=== PATIENT | male | born 1975 | race Caucasian/White ===

== ENCOUNTER 2018-12-31 13:55 | Inpatient (IN) | payer OTHER ==
[2018-12-31 14:29] VITALS: BMI 21.9
--- NOTE | 2018-12-31 15:26 | HP ---
CIWA Score Nausea/Vomitin Muscle Tremors: 2 Anxiety: 2 Agitation: 1-Slight > Activity Paroxysmal Sweats: 1-Minimal Palms Moist Orientation: 0-Oriented Tacttile Disturbances: 1-Very Mild Itch/Numbness Auditory Disturbances: 1-Very Mild Visual Disturbances: 0-None Headache: 3-Moderate CIWA-Ar Total Score: 13 - Admission Criteria OASAS Guidelines: Admission for Medically Managed Detox: Requires at least one of the followin. CIWA greater than 12 2. Seizures within the past 24 hours 3. Delirium tremens within the past 24 hours 4. Hallucinations within the past 24 hours 5. Acute intervention needed for co occurring medical disorder 6. Acute intervention needed for co occurring psychiatric disorder 7. Severe withdrawal that cannot be handled at a lower level of care (continued vomiting, continued diarrhea, abnormal vital signs) requiring intravenous medication and/or fluids 8. Admitting History and Physical - Smoking History Smoking history: Current every day smoker Have you smoked in the past 12 months: Yes Aproximately how many cigarettes per day: 15 - Alcohol/Substance Use Hx Alcohol Use: Yes Admission ROS [facility] Chief Complaint: Teo Clark is a 43 year old male presenting for alcohol, heroin, and cocaine abuse. Allergies/Adverse Reactions: Allergies Allergy/AdvReac Type Severity Reaction Status Date / Time No Known Allergies Allergy Verified 12/31/18 14:21 History of Present Illness: Teo Clark is a 43 year old male presenting for alcohol, heroin, and cocaine abuse. Alcohol: 2 pints and 2 six-packs of 24oz beers per day. Drinks every day. Last drink was shortly before arriving at this facility. Denies seizures. Has had blackouts in the past, most recently several months ago. Denies falls and head hits. Uncertain of longest period of sobriety. Heroin: 1 bundle daily. Daily user. Endorses IVDU. Uses needles only once, does not reuse, denies sharing needles. Has had a history of abscess. Has had 2 overdoses. Has a Narcan kit and knows how to use. Currently on methadone program , 100mg (highest dose), through [facility], goes daily. Cocaine: 1 bundle daily. Daily user. Endorses IVDU. Has been to detox and rehab in the past. Has been to [facility] 3 months ago. Plans after detox: does not want to go to rehab, wants to go back home. Medical History: Hep C (untreated) Surgical History: appendectomy, L ankle fracture repair, tonsillectomy Psychiatric History: depression, anxiety, bipolar Smokinppd, >20 years Social: living with friends. Family is abroad in [place]. Does not have kids. Will be admitted for Alcohol detox with [facility] protocol. Patient's methadone program is currently closed and will need methadone dose verification in the morning. Exam Limitations: No Limitations - Ebola screening Have you traveled outside of the country in the last 21 days: No Have you had contact with anyone from an Ebola affected area: No Do you have a fever: No - Review of Systems Constitutional: Chills, Loss of Appetite EENT: reports: No Symptoms Reported Respiratory: reports: No Symptoms reported Cardiac: reports: No Symptoms Reported GI: reports: Diarrhea, Nausea : reports: No Symptoms Reported Musculoskeletal: reports: Back Pain, Other (leg pain and occasional swelling) Integumentary: reports: No Symptoms Reported Neuro: reports: Headache, Tingling (in lower extremities) Endocrine: reports: Intolerance to Cold Hematology: reports: No Symptoms Reported Psychiatric: reports: Orientated x3, Anxious Patient History - Patient Medical History Hx Anemia: No Hx Asthma: No Hx Chronic Obstructive Pulmonary Disease (COPD): No Hx Cancer: No Hx Cardiac Disorders: No Hx Congestive Heart Failure: No Hx Hypertension: No Hx Hypercholesterolemia: No Hx Pacemaker: No HX Cerebrovascular Accident: No Hx Seizures: No Hx Dementia: No Hx Diabetes: No Hx Gastrointestinal Disorders: No Hx Liver Disease: No Hx Genitourinary Disorders: No Hx Sexually Transmitted Disorders: No Hx Renal Disease (ESRD): No Hx Thyroid Disease: No Hx Human Immunodeficiency Virus (HIV): No (09/29 last negative) Hx Hepatitis C: Yes Hx Depression: Yes Hx Suicide Attempt: No Hx Bipolar Disorder: Yes Hx Schizophrenia: No - Patient Surgical History Past Surgical History: Yes Hx Appendectomy: Yes Hx Orthopedic Surgery: Yes (s/p surgery of left ankle at [place] 09/18/14) Other Surgical History: tonsillectomy Anesthesia Reaction: No - PPD History PPD to be Administered?: Yes - Smoking Cessation Smoking history: Current every day smoker Have you smoked in the past 12 months: Yes Aproximately how many cigarettes per day: 15 Cigars Per Day: 0 Hx Chewing Tobacco Use: No Initiated information on smoking cessation: Yes 'Breaking Loose' booklet given: 12/31/18 - Substance & Tx. History Hx Alcohol Use: Yes Hx Substance Use: Yes Substance Use Type: Alcohol, Cocaine, Heroin - Substances abused Heroin Substance route: Injection Frequency: Daily Amount used: 10BAGS Age of first use: 18 Date of last use: 12/31/18 Cocaine Substance route: Injection Frequency: Daily Amount used: 10BAGS Age of first use: 18 Date of last use: 12/31/18 Alcohol Substance route: Oral Frequency: Daily Amount used: 2BTL- 24OZ BEER/ 2PTS VODKA Age of first use: 15 Date of last use: 12/31/18 Admission Physical Exam [facility] - Vital Signs Vital Signs: Vital Signs - 24 hr 12/31/18 14:16 Temperature 97.3 F L Pulse Rate 63 Respiratory 18 Rate Blood Pressure 122/71 - Physical General Appearance: Yes: Disheveled, Mild Distress HEENTM: Yes: EOMI, Normocephalic, Normal Voice, DAHLIA, Pharynx Normal Respiratory: Yes: Chest Non-Tender, Lungs Clear, Normal Breath Sounds, No Respiratory Distress, No Accessory Muscle Use Neck: Yes: No masses,lesions,Nodules, Trachea in good position Breast: Yes: Breast Exam Deferred Cardiology: Yes: Regular Rhythm, Regular Rate, S1, S2 Abdominal: Yes: Normal Bowel Sounds, Non Tender, Flat, Soft Genitourinary: Yes: Within Normal Limits Back: Yes: Normal Inspection Musculoskeletal: Yes: full range of Motion Extremities: Yes: Normal Capillary Refill, Normal Range of Motion, Non-Tender, Other (venous stasis dermatitis lesions noted on bilateral lower legs) Neurological: Yes: child study team director II-XII NML intact, Fully Oriented, Alert, Motor Strength 5/5 Integumentary: Yes: Normal Color, Dry, Warm, Track Srinivasan (noted on arms, neck) - Diagnostic (1) Alcohol dependence Current Visit: No Status: Acute (2) Anxiety and depression Current Visit: No Status: Acute (3) Bipolar disorder Current Visit: No Status: Acute (4) Hepatitis C Current Visit: No Status: Acute (5) Heroin dependence Current Visit: No Status: Acute (6) Nicotine dependence Current Visit: No Status: Acute (7) Weight loss Current Visit: No Status: Acute Breathalyzer - Breathalyzer Breathalyzer: 0 Urine Drug Screen - Test Device Lot number: [id number] Expiration date: 08/15/20 - Control Is test valid?: Yes - Results Drug screen NEGATIVE: No Urine drug screen results: THC-Marijuana, PASTOR-Cocaine, FEN-Fentanyl, MOP-Opiates , OXY-Oxycodone, MTD-Methadone Inpatient Rehab Admission - Rehab Decision to Admit Inpatient rehab admission?: No
[2018-12-31] MEDS ORDERED: MAGNESIUM HYDROX 2400MG/30ML ORAL SUSPENSION 30 ML CUP PO PRN (16:02)
[2018-12-31] MEDS ORDERED: MENTHOL/PHENOL 1 EACH UD MM PRN (16:02)
[2018-12-31] MEDS ORDERED: MAGNESIUM CITRATE 300 ML BOTTLE PO PRN (16:02)
[2018-12-31] MEDS ORDERED: BISMUTH SUBSALICYLATE 524 MG/30 ML UD PO PRN (16:02)
[2018-12-31] MEDS ORDERED: ACETAMINOPHEN 325 MG TABLET (FP) PO PRN ×2 (16:02)
[2018-12-31] MEDS ORDERED: IBUPROFEN 400 MG TABLET (FP) PO PRN (16:02)
--- NOTE | 2018-12-31 16:11 | PN ---
Teaching Attending Note Name of Resident: Axel Monteiro ATTENDING PHYSICIAN STATEMENT I saw and evaluated the patient. I reviewed the resident's note and discussed the case with the resident. I agree with the resident's findings and plan as documented. SUBJECTIVE: I agree with subjective findings of resident OBJECTIVE: I agree with objective findings of resident ASSESSMENT AND PLAN: Agree with plan of admission to detox. Dr. Parkinson
[2018-12-31] MEDS: chlordiazePOXIDE HCL 25 MG CAPSULE PO SCH ×2 (17:42→22:11)
[2018-12-31] MEDS: MELATONIN 5 MG TABLETS PO PRN (22:11)
[2018-12-31] MEDS: THIAMINE HCL 100 MG TABLET (FP) PO SCH (22:25)
[2018-12-31] MEDS: hydrOXYzine PAMOATE 25 MG CAPSULE (FP) PO PRN (23:38)
[2019-01-01] MEDS: chlordiazePOXIDE HCL 25 MG CAPSULE PO SCH ×4 (06:01→22:10)
--- NOTE | 2019-01-01 09:04 | PN ---
S CIWA - CIWA Score Nausea/Vomitin-Mild Nausea/No Vomiting Muscle Tremors: 2 Anxiety: 3 Agitation: 2 Paroxysmal Sweats: 2 Orientation: 0-Oriented Tacttile Disturbances: 0-None Auditory Disturbances: 1-Very Mild Visual Disturbances: 0-None Headache: 1-Very Mild CIWA-Ar Total Score: 12 S Progress Note (SOAP) Subjective: doing well with librium detox regimen resting on bed waiting for methadone 100 mg po requests to take methadone at 10 am daily discoloration both skin of lower legs due to poor circulation with chronic neurogenic pain eucerin cream + gabapentin 300 mg po bid Objective: 01/01/19 10:35 Vital Signs Temperature 96.7 F L 01/01/19 09:08 Pulse Rate 57 L 01/01/19 09:08 Respiratory Rate 16 01/01/19 09:08 Blood Pressure 108/63 01/01/19 09:08 O2 Sat by Pulse Oximetry (%) Laboratory Last Values WBC 4.6 K/mm3 (4.0-10.0) 01/01/19 07:50 RBC 4.18 M/mm3 (4.00-5.60) 01/01/19 07:50 Hgb 12.3 GM/dL (11.7-16.9) 01/01/19 07:50 Hct 36.2 % (35.4-49) 01/01/19 07:50 MCV 86.6 fl (80-96) 01/01/19 07:50 MCH 29.4 pg (25.7-33.7) 01/01/19 07:50 MCHC 33.9 g/dl (32.0-35.9) 01/01/19 07:50 RDW 13.7 % (11.9-15.9) 01/01/19 07:50 Plt Count 192 K/MM3 (134-434) 01/01/19 07:50 MPV 9.1 fl (7.5-11.1) 01/01/19 07:50 lab noted Assessment: 01/01/19 10:36 alcohol withdrawal sx Plan: continue librium detox regimen
[2019-01-01] MEDS ORDERED: METHADONE HCL 10 MG TABLET PO SCH (10:00)
[2019-01-01] MEDS ORDERED: METHADONE HCL 40 MG DISPERSABLE TABLET ONE (10:02)
[2019-01-01] MEDS ORDERED: METHADONE HCL 10 MG TABLET ONE (10:02)
[2019-01-01] MEDS: METHADONE 80 MG, METHADONE 20 MG PO SCH (10:17)
[2019-01-01 10:18] LABS: HEMATOCRIT 36.2 % (35.4-49); HEMOGLOBIN 12.3 GM/dL (11.7-16.9); MCH 29.4 pg (25.7-33.7); MCHC 33.9 g/dl (32.0-35.9); MEAN CELL VOLUME 86.6 fl (80-96); MEAN PLT VOLUME 9.1 fl (7.5-11.1); PLATELET COUNT 192 K/MM3 (134-434); RBC 4.18 M/mm3 (4.00-5.60); RDW 13.7 % (11.9-15.9); WHITE BLOOD COUNT 4.6 K/mm3 (4.0-10.0)
[2019-01-01] MEDS: PRENATAL VITAMINS W/ FOLIC ACID TABLET (FP) PO SCH (10:18)
[2019-01-01] MEDS: NICOTINE 21 MG/24 HOURS TOPICAL PATCH TD SCH (10:20)
[2019-01-01 10:51] LABS: ALBUMIN 3.2 g/dl (3.4-5.0); BILIRUBIN,TOTAL 0.3 mg/dL (0.2-1); BLOOD UREA NITROGEN 15.3 mg/dL (7-18); CALCIUM 9.2 mg/dL (8.5-10.1); CREATININE 0.8 mg/dL (0.55-1.3); POTASSIUM 4.1 mmol/L (3.5-5.1); TOT PROT 6.5 g/dl (6.4-8.2)
[2019-01-01] MEDS: CLOTRIMAZOLE 1% CREAM 15 GM TUBE TP SCH ×2 (12:13→22:13)
[2019-01-01] MEDS: GABAPENTIN 300 MG CAPSULE (FP) PO SCH ×2 (12:13→22:10)
[2019-01-01] MEDS: MINERAL OIL/PETROLAT/WATER TOPICAL CREAM 113 GM JAR TP SCH ×2 (12:15→22:13)
[2019-01-01] MEDS ORDERED: COLLOIDAL OATMEAL 1 BAR EACH TP PRN (12:32)
[2019-01-01] MEDS: chlordiazePOXIDE HCL 25 MG CAPSULE PO PRN (12:51)
--- NOTE | 2019-01-01 13:57 | CONSULT ---
[facility] Psychiatric Consult - Data Date of interview: 01/01/19 Admission source: [facility] Identifying data: Patient is a 43 year old single [place] male, without children, unemployed, homeless, and is not receiving financial assistance. This is one of multiple admissions for patient. Patient admitted to for alcohol, cocaine and opiate dependence. Substance Abuse History: Smoking Cessation. Smoking history: Current every day smoker. Have you smoked in the past 12 months: Yes. Aproximately how many cigarettes per day: 15. Cigars Per Day: 0. Hx Chewing Tobacco Use: No. Initiated information on smoking cessation: Yes. 'Breaking Loose' booklet given : 12/31/18. - Substance & Tx. History. Hx Alcohol Use: Yes. Hx Substance Use : Yes. Substance Use Type: Alcohol, Cocaine, Heroin. - Substances abused. Heroin. Substance route: Injection. Frequency: Daily. Amount used: 10BAGS. Age of first use: 18. Date of last use: 12/31/18. Cocaine. Substance route : Injection. Frequency: Daily. Amount used: 10BAGS. Age of first use: 18. Date of last use: 12/31/18. Alcohol. Substance route: Oral. Frequency: Daily. Amount used: 2BTL- 24OZ BEER/ 2PTS VODKA. Age of first use: 15. Date of last use: 12/31/18 Medical History: s/p surgery of left ankle at [place] 09/18/14 Psychiatric History: Patient's reports history of two psychiatric hospitalizations most recently less then one year ago at [facility] due to worsening anxiety and depression. He reports being diagnosed with Bipolar disorder and anxiety disorder and claims to have been prescribed prozac + clonoidine + Trazodone. Patient is not currently under psychiatric care. Reports most recently recieving outpatient psychiatric care by Dr. Burrell at the [facility] five months ago and reports being tried on prozac 30mg, trazodone 100, Seroquel 200mg, Depakote 250mg, Xanax 2mg and Ambien. Patient denies history of suicide attempt. At present patient reports anxiety ( requesting klonopin) and difficulty sleeping. Physical/Sexual Abuse/Trauma History: denies. Mental Status Exam - Mental Status Exam Alert and Oriented to: Time, Place, Person Cognitive Function: Good Patient Appearance: Well Groomed Mood: Euthymic Affect: Mood Congruent Patient Behavior: Restless Speech Pattern: Clear Voice Loudness: Moderately Soft/Quiet Thought Process: Goal Oriented Thought Disorder: Not Present Hallucinations: Denies Suicidal Ideation: Denies Homicidal Ideation: Denies Insight/Judgement: Poor Sleep: Poorly Appetite: Fair Muscle strength/Tone: Normal Gait/Station: Normal Psychiatric Findings - Problem List ([place] 1, 2,3) (1) Methadone maintenance therapy patient Current Visit: Yes Status: Chronic (2) Alcohol dependence Current Visit: Yes Status: Acute (3) Cocaine dependence Current Visit: Yes Status: Acute (4) Substance-induced sleep disorder Current Visit: Yes Status: Acute (5) Substance induced mood disorder Current Visit: Yes Status: Acute (6) Mood disorder Current Visit: Yes Status: Chronic (7) Opiate dependence Current Visit: Yes Status: Acute - Initial Treatment Plan Initial Treatment Plan: Psychoeducation provided. Detoxification in progress. Will order Seroquel 50mg HS. Benefits and side effects discussed. Verbal consent given.
[2019-01-01] MEDS: QUEtiapine FUMARATE 50 MG TABLET PO SCH (22:10)
[2019-01-01] MEDS: THIAMINE HCL 100 MG TABLET (FP) PO SCH (22:11)
[2019-01-01] MEDS: hydrOXYzine PAMOATE 25 MG CAPSULE (FP) PO PRN (23:24)
[2019-01-01] MEDS: MAG HYDROX/AL HYDROX/SIMETH 30 ML UNIT-DOSE CUP PO PRN (23:24)
[2019-01-01] MEDS: MELATONIN 5 MG TABLETS PO PRN (23:24)
[2019-01-02] MEDS: chlordiazePOXIDE HCL 25 MG CAPSULE PO PRN ×2 (01:27→13:09)
[2019-01-02] MEDS: chlordiazePOXIDE HCL 25 MG CAPSULE PO SCH ×4 (05:59→22:25)
[2019-01-02] MEDS ORDERED: METHADONE HCL 40 MG DISPERSABLE TABLET ONE (09:26)
[2019-01-02] MEDS ORDERED: METHADONE HCL 10 MG TABLET ONE (09:26)
[2019-01-02] MEDS: PRENATAL VITAMINS W/ FOLIC ACID TABLET (FP) PO SCH (10:11)
[2019-01-02] MEDS: METHADONE 80 MG, METHADONE 20 MG PO SCH (10:11)
[2019-01-02] MEDS: MINERAL OIL/PETROLAT/WATER TOPICAL CREAM 113 GM JAR TP SCH ×2 (10:12→22:24)
[2019-01-02] MEDS: CLOTRIMAZOLE 1% CREAM 15 GM TUBE TP SCH ×2 (10:12→22:24)
[2019-01-02] MEDS: NICOTINE 21 MG/24 HOURS TOPICAL PATCH TD SCH (10:14)
[2019-01-02] MEDS: GABAPENTIN 300 MG CAPSULE (FP) PO SCH ×2 (10:15→22:24)
--- NOTE | 2019-01-02 11:49 | PN ---
[facility] CIWA - CIWA Score Nausea/Vomitin-No Nausea/No Vomiting Muscle Tremors: 1-None Visible, but [place] Anxiety: 3 Agitation: 2 Paroxysmal Sweats: 1-Minimal Palms Moist Orientation: 0-Oriented Tacttile Disturbances: 1-Very Mild Itch/Numbness Auditory Disturbances: 0-None Visual Disturbances: 1-Very Mild Sensitivity Headache: 1-Very Mild CIWA-Ar Total Score: 10 [facility] Progress Note (SOAP) Subjective: c/o of irritability, body aches, interrupted sleep Objective: 01/02/19 11:47 Vital Signs Temperature 97.1 F L 01/02/19 09:05 Pulse Rate 66 01/02/19 09:05 Respiratory Rate 18 01/02/19 09:05 Blood Pressure 97/52 L 01/02/19 09:05 O2 Sat by Pulse Oximetry (%) Laboratory Last Values WBC 4.6 K/mm3 (4.0-10.0) 01/01/19 07:50 RBC 4.18 M/mm3 (4.00-5.60) 01/01/19 07:50 Hgb 12.3 GM/dL (11.7-16.9) 01/01/19 07:50 Hct 36.2 % (35.4-49) 01/01/19 07:50 MCV 86.6 fl (80-96) 01/01/19 07:50 MCH 29.4 pg (25.7-33.7) 01/01/19 07:50 MCHC 33.9 g/dl (32.0-35.9) 01/01/19 07:50 RDW 13.7 % (11.9-15.9) 01/01/19 07:50 Plt Count 192 K/MM3 (134-434) 01/01/19 07:50 MPV 9.1 fl (7.5-11.1) 01/01/19 07:50 Sodium 136 mmol/L (136-145) 01/01/19 07:50 Potassium 4.1 mmol/L (3.5-5.1) 01/01/19 07:50 Chloride 102 mmol/L (98-107) 01/01/19 07:50 Carbon Dioxide 29 mmol/L (21-32) 01/01/19 07:50 Anion Gap 5 MMOL/L (8-16) L 01/01/19 07:50 BUN 15.3 mg/dL (7-18) 01/01/19 07:50 Creatinine 0.8 mg/dL (0.55-1.3) 01/01/19 07:50 Est GFR (CKD-EPI)AfAm 127.70 01/01/19 07:50 Est GFR (CKD-EPI)NonAf 110.18 01/01/19 07:50 Random Glucose 93 mg/dL (74-106) 01/01/19 07:50 Calcium 9.2 mg/dL (8.5-10.1) 01/01/19 07:50 Total Bilirubin 0.3 mg/dL (0.2-1) 01/01/19 07:50 AST 16 U/L (15-37) 01/01/19 07:50 ALT 17 U/L (13-61) 01/01/19 07:50 Alkaline Phosphatase 71 U/L (45-117) 01/01/19 07:50 Total Protein 6.5 g/dl (6.4-8.2) 01/01/19 07:50 Albumin 3.2 g/dl (3.4-5.0) L 01/01/19 07:50 RPR Titer Nonreactive (NONREACTIVE) 01/01/19 07:50 Assessment: 01/02/19 11:47 AOx 3 no acute distress ambulating in the unit no gait disturbance withdrawal sx Plan: increase po fluids continue detox continue to monitor
[2019-01-02] MEDS: MAG HYDROX/AL HYDROX/SIMETH 30 ML UNIT-DOSE CUP PO PRN (18:04)
[2019-01-02] MEDS: QUEtiapine FUMARATE 50 MG TABLET PO SCH (22:24)
[2019-01-02] MEDS: THIAMINE HCL 100 MG TABLET (FP) PO SCH (22:24)
[2019-01-03] MEDS ORDERED: chlordiazePOXIDE HCL 10 MG CAPSULE PO PRN
[2019-01-03] MEDS: hydrOXYzine PAMOATE 25 MG CAPSULE (FP) PO PRN ×2 (04:43→19:20)
[2019-01-03] MEDS: chlordiazePOXIDE HCL 10 MG CAPSULE PO SCH ×4 (06:30→22:11)
[2019-01-03] MEDS ORDERED: METHADONE HCL 10 MG TABLET ONE (08:53)
[2019-01-03] MEDS ORDERED: METHADONE HCL 40 MG DISPERSABLE TABLET ONE (08:54)
[2019-01-03] MEDS: METHADONE 80 MG, METHADONE 20 MG PO SCH (10:49)
[2019-01-03] MEDS: GABAPENTIN 300 MG CAPSULE (FP) PO SCH ×2 (10:49→22:11)
[2019-01-03] MEDS: PRENATAL VITAMINS W/ FOLIC ACID TABLET (FP) PO SCH (10:53)
[2019-01-03] MEDS: MINERAL OIL/PETROLAT/WATER TOPICAL CREAM 113 GM JAR TP SCH ×2 (10:53→22:12)
[2019-01-03] MEDS: CLOTRIMAZOLE 1% CREAM 15 GM TUBE TP SCH ×2 (10:53→22:12)
[2019-01-03] MEDS: NICOTINE 21 MG/24 HOURS TOPICAL PATCH TD SCH (10:53)
--- NOTE | 2019-01-03 12:23 | PN ---
[facility] CIWA - CIWA Score Nausea/Vomitin-Mild Nausea/No Vomiting Muscle Tremors: 2 Anxiety: 1-Mildly Anxious Agitation: 2 Paroxysmal Sweats: 1-Minimal Palms Moist Orientation: 0-Oriented Tacttile Disturbances: 0-None Auditory Disturbances: 0-None Visual Disturbances: 0-None Headache: 0-None Present CIWA-Ar Total Score: 7 [facility] Progress Note (SOAP) Subjective: Pt here for alcohol detox. In a methadone MAT. O: Vital Signs - 24 hr 01/02/19 01/02/19 01/02/19 13:37 17:45 21:17 Temperature 97.0 F L 98.0 F 98.9 F Pulse Rate 52 L 56 L 71 Respiratory 19 16 18 Rate Blood Pressure 103/63 107/69 105/59 L 01/03/19 01/03/19 01/03/19 00:20 03:30 06:00 Temperature Pulse Rate Respiratory 18 18 18 Rate Blood Pressure 01/03/19 09:52 Temperature 97.7 F Pulse Rate 64 Respiratory 18 Rate Blood Pressure 95/54 L Laboratory Tests 01/01/19 01/01/19 01/01/19 07:50 07:50 07:50 WBC 4.6 RBC 4.18 Hgb 12.3 Hct 36.2 MCV 86.6 MCH 29.4 MCHC 33.9 RDW 13.7 Plt Count 192 MPV 9.1 Sodium 136 Potassium 4.1 Chloride 102 Carbon Dioxide 29 Anion Gap 5 L BUN 15.3 Creatinine 0.8 Est GFR (CKD-EPI)AfAm 127.70 Est GFR (CKD-EPI)NonAf 110.18 Random Glucose 93 Calcium 9.2 Total Bilirubin 0.3 AST 16 ALT 17 Alkaline Phosphatase 71 Total Protein 6.5 Albumin 3.2 L RPR Titer Nonreactive a/p:Continue alcohol detox protocol continue MAT methadone for OUD
[2019-01-03] MEDS: MAG HYDROX/AL HYDROX/SIMETH 30 ML UNIT-DOSE CUP PO PRN (16:35)
[2019-01-03] MEDS: THIAMINE HCL 100 MG TABLET (FP) PO SCH (22:11)
[2019-01-03] MEDS: QUEtiapine FUMARATE 50 MG TABLET PO SCH (22:11)
[2019-01-04] MEDS: hydrOXYzine PAMOATE 25 MG CAPSULE (FP) PO PRN (03:33)
[2019-01-04] MEDS: MELATONIN 5 MG TABLETS PO PRN ×2 (03:34→22:16)
[2019-01-04] MEDS: chlordiazePOXIDE HCL 10 MG CAPSULE PO SCH ×2 (06:27→18:01)
[2019-01-04] MEDS ORDERED: METHADONE HCL 40 MG DISPERSABLE TABLET ONE (09:00)
[2019-01-04] MEDS ORDERED: METHADONE HCL 10 MG TABLET ONE (09:00)
[2019-01-04] MEDS: METHADONE 80 MG, METHADONE 20 MG PO SCH (11:02)
[2019-01-04] MEDS: PRENATAL VITAMINS W/ FOLIC ACID TABLET (FP) PO SCH (11:03)
[2019-01-04] MEDS: GABAPENTIN 300 MG CAPSULE (FP) PO SCH ×3 (11:03→22:15)
[2019-01-04] MEDS: NICOTINE 21 MG/24 HOURS TOPICAL PATCH TD SCH (11:04)
[2019-01-04] MEDS: MINERAL OIL/PETROLAT/WATER TOPICAL CREAM 113 GM JAR TP SCH ×2 (11:04→22:15)
[2019-01-04] MEDS: CLOTRIMAZOLE 1% CREAM 15 GM TUBE TP SCH ×2 (11:04→22:15)
--- NOTE | 2019-01-04 14:18 | PN ---
S CIWA - CIWA Score Nausea/Vomitin-No Nausea/No Vomiting Muscle Tremors: 1-None Visible, but [place] Anxiety: 2 Agitation: 1-Slight > Activity Paroxysmal Sweats: No Perspiration Orientation: 0-Oriented Tacttile Disturbances: 0-None Auditory Disturbances: 0-None Visual Disturbances: 0-None Headache: 0-None Present CIWA-Ar Total Score: 4 [facility] Progress Note (SOAP) Subjective: doing well with librium detox regimen less tremor mild anxiety patient agrees to return to methadone program for neurontine prescription as well as sleeping medication that he has trouble sleep at night strong recommend no nap during the day Objective: 01/04/19 14:21 Vital Signs Temperature 97.7 F 01/04/19 13:15 Pulse Rate 66 01/04/19 13:15 Respiratory Rate 18 01/04/19 13:15 Blood Pressure 98/57 L 01/04/19 13:15 O2 Sat by Pulse Oximetry (%) Laboratory Last Values WBC 4.6 K/mm3 (4.0-10.0) 01/01/19 07:50 RBC 4.18 M/mm3 (4.00-5.60) 01/01/19 07:50 Hgb 12.3 GM/dL (11.7-16.9) 01/01/19 07:50 Hct 36.2 % (35.4-49) 01/01/19 07:50 MCV 86.6 fl (80-96) 01/01/19 07:50 MCH 29.4 pg (25.7-33.7) 01/01/19 07:50 MCHC 33.9 g/dl (32.0-35.9) 01/01/19 07:50 RDW 13.7 % (11.9-15.9) 01/01/19 07:50 Plt Count 192 K/MM3 (134-434) 01/01/19 07:50 MPV 9.1 fl (7.5-11.1) 01/01/19 07:50 Sodium 136 mmol/L (136-145) 01/01/19 07:50 Potassium 4.1 mmol/L (3.5-5.1) 01/01/19 07:50 Chloride 102 mmol/L (98-107) 01/01/19 07:50 Carbon Dioxide 29 mmol/L (21-32) 01/01/19 07:50 Anion Gap 5 MMOL/L (8-16) L 01/01/19 07:50 BUN 15.3 mg/dL (7-18) 01/01/19 07:50 Creatinine 0.8 mg/dL (0.55-1.3) 01/01/19 07:50 Est GFR (CKD-EPI)AfAm 127.70 01/01/19 07:50 Est GFR (CKD-EPI)NonAf 110.18 01/01/19 07:50 Random Glucose 93 mg/dL (74-106) 01/01/19 07:50 Calcium 9.2 mg/dL (8.5-10.1) 01/01/19 07:50 Total Bilirubin 0.3 mg/dL (0.2-1) 01/01/19 07:50 AST 16 U/L (15-37) 01/01/19 07:50 ALT 17 U/L (13-61) 01/01/19 07:50 Alkaline Phosphatase 71 U/L (45-117) 01/01/19 07:50 Total Protein 6.5 g/dl (6.4-8.2) 01/01/19 07:50 Albumin 3.2 g/dl (3.4-5.0) L 01/01/19 07:50 RPR Titer Nonreactive (NONREACTIVE) 01/01/19 07:50 lab noted Assessment: 01/04/19 14:21 alcohol withdrawal sx Plan: continue librium detox regimen
[2019-01-04] MEDS: MAG HYDROX/AL HYDROX/SIMETH 30 ML UNIT-DOSE CUP PO PRN (21:11)
[2019-01-04] MEDS: QUEtiapine FUMARATE 50 MG TABLET PO SCH (22:15)
[2019-01-04] MEDS: THIAMINE HCL 100 MG TABLET (FP) PO SCH (22:15)
[2019-01-05] MEDS ORDERED: chlordiazePOXIDE HCL 10 MG CAPSULE PO ONE (05:00)
[2019-01-05 06:35] VITALS: PULSE 61
[2019-01-05] MEDS: GABAPENTIN 300 MG CAPSULE (FP) PO SCH (07:39)
[2019-01-05] MEDS ORDERED: METHADONE HCL 10 MG TABLET ONE (08:32)
[2019-01-05] MEDS ORDERED: METHADONE HCL 40 MG DISPERSABLE TABLET ONE (08:32)
[2019-01-05] MEDS: METHADONE 80 MG, METHADONE 20 MG PO SCH (09:05)
[2019-01-05] MEDS: MINERAL OIL/PETROLAT/WATER TOPICAL CREAM 113 GM JAR TP SCH (09:06)
[2019-01-05] MEDS: PRENATAL VITAMINS W/ FOLIC ACID TABLET (FP) PO SCH (09:06)
[2019-01-05] MEDS: CLOTRIMAZOLE 1% CREAM 15 GM TUBE TP SCH (09:06)
[2019-01-05] MEDS: NICOTINE 21 MG/24 HOURS TOPICAL PATCH TD SCH (09:06)
[2019-01-05 09:10] VITALS: BP 98/53; TEMP 99
--- NOTE | 2019-01-05 15:33 | DS ---
[facility] Detox Discharge Summary Admission Date: 12/31/18 Discharge Date: 01/05/19 - History Present History: Alcohol Dependence Additional Comments: 43 years old male admitted on 12/31/18 for alcohol withdawal sx management did well with librium detox reimen no complication through out the detox stay alert oriented x 3 cardiac S1S2 regular rhythm rate respiratory clear lung bilaterally on auscultation extremities full range of motion - Physical Exam Results Vital Signs: Vital Signs Temperature 99.0 F 01/05/19 09:10 Pulse Rate 61 01/05/19 09:10 Respiratory Rate 18 01/05/19 09:10 Blood Pressure 98/53 L 01/05/19 09:10 O2 Sat by Pulse Oximetry (%) Pertinent Admission Physical Exam Findings: alcohol withdrawal sx Laboratory Last Values WBC 4.6 K/mm3 (4.0-10.0) 01/01/19 07:50 RBC 4.18 M/mm3 (4.00-5.60) 01/01/19 07:50 Hgb 12.3 GM/dL (11.7-16.9) 01/01/19 07:50 Hct 36.2 % (35.4-49) 01/01/19 07:50 MCV 86.6 fl (80-96) 01/01/19 07:50 MCH 29.4 pg (25.7-33.7) 01/01/19 07:50 MCHC 33.9 g/dl (32.0-35.9) 01/01/19 07:50 RDW 13.7 % (11.9-15.9) 01/01/19 07:50 Plt Count 192 K/MM3 (134-434) 01/01/19 07:50 MPV 9.1 fl (7.5-11.1) 01/01/19 07:50 Sodium 136 mmol/L (136-145) 01/01/19 07:50 Potassium 4.1 mmol/L (3.5-5.1) 01/01/19 07:50 Chloride 102 mmol/L (98-107) 01/01/19 07:50 Carbon Dioxide 29 mmol/L (21-32) 01/01/19 07:50 Anion Gap 5 MMOL/L (8-16) L 01/01/19 07:50 BUN 15.3 mg/dL (7-18) 01/01/19 07:50 Creatinine 0.8 mg/dL (0.55-1.3) 01/01/19 07:50 Est GFR (CKD-EPI)AfAm 127.70 01/01/19 07:50 Est GFR (CKD-EPI)NonAf 110.18 01/01/19 07:50 Random Glucose 93 mg/dL (74-106) 01/01/19 07:50 Calcium 9.2 mg/dL (8.5-10.1) 01/01/19 07:50 Total Bilirubin 0.3 mg/dL (0.2-1) 01/01/19 07:50 AST 16 U/L (15-37) 01/01/19 07:50 ALT 17 U/L (13-61) 01/01/19 07:50 Alkaline Phosphatase 71 U/L (45-117) 01/01/19 07:50 Total Protein 6.5 g/dl (6.4-8.2) 01/01/19 07:50 Albumin 3.2 g/dl (3.4-5.0) L 01/01/19 07:50 RPR Titer Nonreactive (NONREACTIVE) 01/01/19 07:50 lab noted - Treatment Hospital Course: Detox Protocol Followed, Detoxed Safely, Responded well, Discharged Condition Good, Rehab Referral Accepted Patient has Accepted a Rehab Referral to: [facility] - Medication Discharge Medications: Ambulatory Orders NK [No Known Home Medication] 12/31/18 - Diagnosis (1) Alcohol dependence Status: Acute Qualifiers: Substance use status: uncomplicated Qualified Code(s): F10.20 - Alcohol dependence, uncomplicated (2) Hepatitis C Status: Chronic Qualifiers: Viral hepatitis chronicity: unspecified Hepatic coma status: without hepatic coma Qualified Code(s): B19.20 - Unspecified viral hepatitis C without hepatic coma (3) Nicotine dependence Status: Acute Qualifiers: Nicotine product type: cigarettes Substance use status: in withdrawal Qualified Code(s): F17.213 - Nicotine dependence, cigarettes, with withdrawal (4) Substance induced mood disorder Status: Suspected (5) Weight loss Status: Acute (6) Methadone maintenance therapy patient Status: Chronic - AMA Did Patient Leave Against Medical Advice: No CIWA Score - CIWA Score Nausea/Vomitin-No Nausea/No Vomiting Muscle Tremors: None Anxiety: 1-Mildly Anxious Agitation: 0-Normal Activity Paroxysmal Sweats: No Perspiration Orientation: 0-Oriented Tacttile Disturbances: 0-None Auditory Disturbances: 0-None Visual Disturbances: 0-None Headache: 0-None Present CIWA-Ar Total Score: 1
== END 2019-01-05 09:30 | disposition home or self-care (01) | DRG 773 ==
LOC: YASAS 13:55 → Y3N 16:38
PROVIDERS: ADMIT Allergy & Immunology; ATTEND Allergy & Immunology
PROC: HZ2ZZZZ Detoxification Services for Substance Abuse Treatment (ICD-10-PCS; principal; 2018-12-31)
DX: F10.230 Alcohol dependence with withdrawal, uncomplicated (principal); F11.20 Opioid dependence, uncomplicated; F14.20 Cocaine dependence, uncomplicated; F17.210 Nicotine dependence, cigarettes, uncomplicated; F19.282 Other psychoactive substance dependence with psychoactive substance-induced sleep disorder; F19.24 Other psychoactive substance dependence with psychoactive substance-induced mood disorder; F39 Unspecified mood [affective] disorder; F41.8 Other specified anxiety disorders; F32.9 Major depressive disorder, single episode, unspecified; B18.2 Chronic viral hepatitis C; R63.4 Abnormal weight loss; Z68.22 Body mass index [BMI] 22.0-22.9, adult; Z59.0 Homelessness
CPT/HCPCS: 36415; 80053; 85027; 86593